=== PATIENT | female | born 1995 | race Caucasian/White ===

== ENCOUNTER 2017-01-16 16:35 | Emergency (ER) | payer BC ==
[2017-01-16] MEDS ORDERED: MAALOX/LIDO2%VISC/SIMETHICONE 40 ML BOT ONE (18:18)
[2017-01-16 18:48] LABS: ALB/GLOB RATIO 1.8 (>1.0); ALBUMIN 4.4 gm/dL (3.5-5.7); ALT/SGPT 14 U/L (7-52); BLOOD UREA NITROGEN 11 mg/dL (7-25); BUN/CREATININE RATIO 12 (6-20); CALCIUM 9.7 mg/dL (8.6-10.3); LIPASE 20 U/L (11-82)
--- NOTE | 2017-01-16 18:49 | US ---
ABDOMINAL-LIMITED: 01/16/2017 6:19 PM CLINICAL HISTORY: Right upper quadrant pain for one week. Patient last ate at noon. STUDY: Limited right upper quadrant ultrasound COMPARISON: none FINDINGS: Gallbladder: Wall thickness: Normal Cholelithiasis: none Pericholecystic Fluid: none Sonographic Rodney's Sign: negative Bile ducts: Common bile duct measures 2 mm. Limited visualized Liver and RUQ structures: normal IMPRESSION: Unremarkable examination. Report was uploaded to the electronic medical record at approximately 1844 hours on 01/16/2017.
[2017-01-16 19:55] LABS: SPECIFIC GRAVITY 1.015 (1.001-1.030); URINE BILIRUBIN NEGATIVE (NEGATIVE); URINE BLOOD NEGATIVE (NEGATIVE); URINE GLUCOSE (UA) NEGATIVE (NEGATIVE); URINE LEUKOCYTE ESTERASE NEGATIVE (NEGATIVE); URINE NITRITE NEGATIVE (NEGATIVE); URINE PROTEIN NEGATIVE (NEGATIVE); URINE UROBILINOGEN NORMAL (0-1 mg/dl)
[2017-01-16 19:56] LABS: URINE APPEARANCE CLEAR; URINE COLOR LIGHT YELLOW
[2017-01-16 19:57] LABS: HCG,QUALITATIVE URINE NEGATIVE
[2017-01-16 20:05] LABS: BASO # 0.1 K/mm3 (0.0-0.2); EOS # 0.1 (0.0-0.5); EOS % 1.8 % (0.9-2.9); HEMATOCRIT 40.1 % (37.0-47.0); HEMOGLOBIN 13.3 gm/l (12.0-16.0); IMM NEUT% 0.1 % (0-1); LYMPH # 2.5 (1.0-4.8); LYMPH % 34.7 % (15-45); MEAN CELL VOLUME 93.7 fl (81.0-99.0); MEAN CORPUSCULAR HEMOGLOBIN 31.1 pg (27.0-31.0); MEAN CORPUSCULAR HGB CONC 33.2 g/dl (33.0-37.0); MEAN PLATELET VOLUME 10.6 fl (7.4-10.4); MONO # 0.4 (0.0-0.8); MONO % 5.5 % (4-12); NEUT % 56.9 % (43-75); PLATELET COUNT 186 K/mm3 (130-400); RED CELL DISTRIBUTION WIDTH 12.4 % (11.5-14.5)
[2017-01-18 13:33] LABS: CHLAMYDIA BD Negative (Negative); N.GONORRHOEAE BD Negative (Negative); SOURCE Urine (())
== END 2017-01-16 20:14 | disposition home or self-care (01) ==
LOC: ED 16:35
DX: R10.11 Right upper quadrant pain (principal); F17.210 Nicotine dependence, cigarettes, uncomplicated
CPT/HCPCS: 83690; 87491; 87591; 81025; 85025; 80053; 81003; 76705; 99284 ×2; A9270